=== PATIENT | female | born 1955 | race Caucasian/White ===

== ENCOUNTER 2023-02-27 11:12 | Outpatient (CLI) | payer MEDICARE, OTHER | END 2023-02-27 11:13 | disposition home or self-care (01) | LOC: BICCT 11:12 | PROVIDERS: ATTEND Nurse Practitioner | DX: Z12.31 Encounter for screening mammogram for malignant neoplasm of breast (principal); Z12.2 Encounter for screening for malignant neoplasm of respiratory organs; F17.210 Nicotine dependence, cigarettes, uncomplicated | CPT/HCPCS: 71271; 77063; 77067 ==

== ENCOUNTER 2023-05-28 10:18 | Outpatient (CLI) | payer MEDICARE, OTHER | END 2023-05-28 10:19 | disposition home or self-care (01) | LOC: RAD 10:18 | PROVIDERS: ATTEND Internal Medicine | DX: R06.00 Dyspnea, unspecified (principal) | CPT/HCPCS: 71046 ==

== ENCOUNTER 2023-11-06 09:51 | Outpatient (CLI) | payer MEDICARE, OTHER | END 2023-11-06 09:52 | disposition home or self-care (01) | LOC: BICCT 09:51 | PROVIDERS: ATTEND Internal Medicine | DX: J39.8 Other specified diseases of upper respiratory tract (principal) | CPT/HCPCS: 71250 ==